=== PATIENT | male | born 1975 | race African-American/Black ===

== ENCOUNTER 2021-10-23 10:46 | Emergency (ER) | payer BC ==
[2021-10-23 11:00] VITALS: RESP 18; TEMP 98.2
--- NOTE | 2021-10-23 12:10 | XR ---
EXAM TYPE: LUMBAR SPINE X RAY SERIES COMPARISON: NONE HISTORY: Pain TECHNIQUE: 3 views are submitted. FINDINGS: Alignment is anatomic. The pedicles are intact. The transverse processes are intact. There is no s pondylolysis or spondylolisthesis. Anterior hypertrophic spurring at multiple levels with facet arth ropathy L5-S1. Mild degenerative disc disease L5-S1. IMPRESSION: 1. No anterior hypertrophic spurring with moderate facet arthropathy L5-S1. Mild degenerative disc di sease L5-S1. If concern for disc herniation correlate with MRI. Suspect foraminal encroachment L5-S1 bilaterally
[2021-10-23] MEDS ORDERED: ORPHENADRINE 30 MG/ML 2 ML VIAL IM STA (12:24)
--- NOTE | 2021-10-23 12:25 | ED ---
Back Pain HPI - General Chief Complaint: Back Pain/Injury Stated Complaint: back & leg pain Time Seen by Provider: 10/23/21 11:35 Source: patient, RN notes reviewed, old records reviewed Limitations: no limitations - History of Present Illness Initial Comments: This is a well-appearing 46-year-old male that presents with low back pain for past six days that radiates down his legs. Patient states he was just sitting and resting when the pain came on. The pain started left lower back and radiated down his left leg which has improved but now moved over to the right lower back and radiating down right leg. He denies any heavy lifting, strenuous activity or injury. Denies any fevers, no nausea vomiting diarrhea. No dysuria or testicular pain. Denies any medical history. MD Complaint: back pain -: days(s) (6) Similar Symptoms Previously: Yes Radiation: right leg Severity scale (1-10): 8 Quality: sharp, other (shooting) Consistency: constant Improves With: immobilization Worsens With: movement, walking Context: unknown Associated Symptoms: denies other symptoms - Related Data Previous Rx's Medication Instructions Recorded Cyclobenzaprine [Flexeril] 10 mg PO TID PRN #15 tab 10/23/21 Ibuprofen [Motrin] 800 mg PO Q8H PRN #30 tab 10/23/21 Lidocaine 5% Patch [Lidoderm] 1 patch TOPICAL DAILY 30 Days #30 10/23/21 patch Allergies Allergy/AdvReac Type Severity Reaction Status Date / Time No Known Allergies Allergy Verified 10/23/21 11:00 Review of Systems ROS Statement: Those systems with pertinent positive or pertinent negative responses have been documented in the HPI. ROS Other: All systems not noted in ROS Statement are negative. Past Medical History Past Medical History: No Reported History Past Surgical History: No Surgical Hx Reported Smoking Status: Former smoker Past Alcohol Use History: Occasional Past Drug Use History: None Reported General Exam Limitations: no limitations General appearance: alert, in no apparent distress Head exam: Present: atraumatic, normocephalic Eye exam: Present: normal appearance. Absent: scleral icterus, conjunctival injection Neck exam: Present: full ROM. Absent: tenderness, meningismus Respiratory exam: Absent: respiratory distress, accessory muscle use Cardiovascular Exam: Present: regular rate GI/Abdominal exam: Present: soft Extremities exam: Present: full ROM, normal capillary refill. Absent: tenderness, pedal edema, joint swelling, calf tenderness Back exam: Present: normal inspection, full ROM, tenderness, muscle spasm, paraspinal tenderness (Lumbar sacral spine). Absent: CVA tenderness (R), CVA tenderness (L), vertebral tenderness, rash noted Expanded Back exam: Absent: saddle anesthesia Back exam: Positive Straight Leg Raise: Right, Left Neurological exam: Present: alert, oriented X3 Psychiatric exam: Present: normal affect, normal mood Skin exam: Present: warm, dry, normal color. Absent: cyanosis, diaphoretic Course Vital Signs 10/23/21 10/23/21 10:56 13:10 Temperature 98.2 F Pulse Rate 82 72 Respiratory 18 18 Rate Blood Pressure 131/86 132/80 O2 Sat by Pulse 100 96 Oximetry Medical Decision Making - Medical Decision Making Patient presents with low back pain for 6 days radiating down the back of legs. States pain initially radiating down the back of his left leg which has imporoved but states pain has now moved over radiating down the back of his right leg. X-ray lumbar spine shows mild degenerative disc disease L5 through S1. Suspect encroachment L5-S1 bilaterally. May correlate with disc herniation. Patient has no red flag symptoms, no bowel or bladder incontinence, no fevers, no history of cancer, no drug or steroid use. Vital signs are stable. Patient was given prescription for Motrin, Flexeril and Lidoderm patches. He will be referred to orthopedics for continuation of care. Directed to return to the emergency room with any new or concerning symptoms as discussed. Patient is agreeable to plan of care. Case discussed with Dr. Ferguson. Disposition Clinical Impression: Low back pain Disposition: HOME SELF-CARE Condition: Good Instructions (If sedation given, give patient instructions): Acute Low Back Pain (ED) Additional Instructions: Use Motrin, Flexeril and Lidoderm patches for pain relief. Follow-up with orthopedics this week. Do not do any activities that worsen your pain including heavy lifting. Return to the emergency room with any new or concerning symptoms including inability to ambulate, bowel or bladder incontinence or fevers. Prescriptions: Cyclobenzaprine [Flexeril] 10 mg PO TID PRN #15 tab PRN Reason: Muscle Spasm Lidocaine 5% Patch [Lidoderm] 1 patch TOPICAL DAILY 30 Days #30 patch Ibuprofen [Motrin] 800 mg PO Q8H PRN #30 tab PRN Reason: Pain Is patient prescribed a controlled substance at d/c from ED?: No Referrals: None,Stated [Primary Care Provider] - 1-2 days Shawn Koenig DO [Doctor of Osteopathic Medicine] - 1-2 days Time of Disposition: 13:00
[2021-10-23] MEDS ORDERED: LIDOCAINE 5% PATCH TOPICAL SCH (12:30)
[2021-10-23 13:11] VITALS: BP 132/80; PULSE 72
== END 2021-10-23 13:13 | disposition home or self-care (01) ==
LOC: EC 10:46
DX: M54.50 Low back pain, unspecified (principal); Z87.891 Personal history of nicotine dependence
CPT/HCPCS: 72100; 99283; 96372; J2360